=== PATIENT | male | born 1965 | race Caucasian/White ===

== ENCOUNTER 2018-04-26 09:11 | Outpatient (CLI) | payer OTHER, SELFPAY ==
[2018-04-26 08:32] LABS: Anion Gap 5.8 mmol/L (3-11); BUN 11 mg/dL (7-18); CO2 30.2 mmol/L (21.0-32.0); CREATININE 0.78 mg/dL (0.70-1.30); Calcium 8.6 mg/dL (8.5-10.1); Chloride 104 mmol/L (98-107); Cholesterol 203 mg/dL (50-200); Glucose 87 mg/dL (70-100); HDL Cholesterol 64 mg/dL (40-60); LDL CHOLESTEROL 135 mg/dL (<100); Potassium 4.1 mmol/L (3.5-5.1); Sodium 140 mmol/L (136-145); Triglyceride 50 mg/dL (30-150)
== END 2018-04-26 09:31 ==
PROVIDERS: PCP Family Medicine; Visit Provider Family Medicine
DX: Z00.00 Encounter for general adult medical examination without abnormal findings (principal); Z13.220 Encounter for screening for lipoid disorders; Z13.228 Encounter for screening for other metabolic disorders
CPT/HCPCS: 36415; 80048; 80061; 83721

== ENCOUNTER 2018-09-05 07:50 | Day surgery (SDC) | payer OTHER, SELFPAY ==
[2018-09-05 08:17] VITALS: BP 121/71; PULSE 86; RESP 16; TEMP 35.6; O2SAT 98
[2018-09-05] MEDS: Lactated Ringers 1,000 ML 75 ML IV (08:41)
--- NOTE | 2018-09-05 09:54 | BOWEL_PTH ---
PATIENT: Mayo Vaca LOC: [facility] U#:[id number] AGE/SX: 52/M ROOM: RE09/05/[address]: Shubham Chavez III : 1965 BED: DIS: 09/05/2018 SPEC #: [id number] RECD: 09/05/18 12:57 STATUS: REGAN ROBLES #: [id number] CATRINA: 09/05/18 09:[address]: Shubham Chavez III DEPT: Surgical Specimen RECD BY: Leah Riley ENTERED: 09/05/18 12:58 SP TYPE: Bowel OTHR DR: Roldan Lino MD Tissues: 1 - BIOPSY BOWEL Procedures: GROSS AND MICRO LEVEL 4 Comments: [id number]
--- NOTE | 2018-09-05 10:23 | W.PM.DSUDISC ---
Discharge Plan Disposition Patient Disposition: HOME Condition: Stable Discharge Details Reason For Visit: SCREENING Attending Provider: Shubham Chavez III Primary Care Provider: Roldan Lino Home Meds and New Rx's Prescriptions: Continued aspirin 325 mg tablet 650 mg PO DAILY RF: 0 montelukast [Singulair] 10 mg tablet 10 mg PO QPM RF: 0 ProAir HFA 8.5 GM HFA aerosol inhaler 2 puff Inhalation q 4h PRNQty: 1 RF: 1 verapamil 40 MG tablet 40 mg PO DAILY RF: 0 budesonide 8.43 ML spray,non-aerosol 1 - 4 spry NS DAILY Qty: 1 RF: 5 Flovent HFA 220 mcg/actuation HFA aerosol inhaler 2 puff Inhalation BID PRNRF: 0 Discharge Instructions Stand Alone Forms: Colonoscopy Post Instructions, Fredi Borden (DSU) Activity:: Activity as Tolerated Diet:: As Tolerated Discharge Orders Discharge Orders: Discharge Order (Routine); Ordered 09/05/18 Ordered By: Shubham Chavez III DS: Diagnosis Discharge Diagnosis (1) Colonoscopy planned: Status: Acute
--- NOTE | 2018-09-05 10:25 | W.COLOREPORT ---
Date of service: 09/05/18 Time of Service: 10:25 Colonoscopy Report Date of procedure: 09/05/18 Pre-op diagnosis general: screening colonoscopy, fistula in ano Surgeon: Shubham Chavez III Anesthesia proc note operative: MAC Pathology: other (sigmoid) Complications: None Disposition: PACU Prep: GoLYTELY Retraction Time: 6 min Findings: Sigmoid polyp sessile single diverticulum in sigmoid Procedure Description: After informed consent was obtained the patient was taken to the procedure room and placed in a left decubitous position. Monitors were applied and a time out was done. The patients name, date of , procedure, allergies to medications and metal in their body was reviewed. The patient was then sedated. Once sedated and comfortable a rectal exam was done. External exam was normal. Internal exam revealed a normal sphincter tone and no palpable masses. The prostate normal. The scope was then introduced and retrofelexed. no internal hemorrhoids were identified. The scope was then advanced to the cecum no difficulty. The TI and appendiceal orifice were identified. The prep was adequate. The scope was then slowly retracted over 6 minutes back into the rectum. Polyps were removed at sigmoid. The scope was removed and the patient was woken up and taken back to Same day surgery in stable condition. The patient tolerated the procedure well and there were no immediate complications. Follow up: The patient should follow up in 10 years unless they develop changes in bowel habits or other new gastrointestinal complaints.
[2018-09-05 10:35] VITALS: BP 120/72; PULSE 66; RESP 16; TEMP 36; O2SAT 98
== END 2018-09-05 10:55 | disposition home or self-care (01) ==
PROVIDERS: PCP Family Medicine; Visit Provider Surgery
PROC: 0DJD8ZZ Inspection of Lower Intestinal Tract, Via Natural or Artificial Opening Endoscopic (ICD-10-PCS; CPT 45378; principal; 2018-09-05 09:00)
DX: Z12.11 Encounter for screening for malignant neoplasm of colon (principal); K60.3 Anal fistula; K63.5 Polyp of colon; K57.30 Diverticulosis of large intestine without perforation or abscess without bleeding
CPT/HCPCS: 45380; 88305

== ENCOUNTER 2020-12-01 03:15 | Outpatient (CLI) | payer OTHER, SELFPAY ==
[2020-12-01 12:32] LABS: HCT 46.1 % (40.0-50.0); HGB 14.9 g/dL (13.5-17.5); MCH 30.8 pg (27.0-33.0); MCHC 32.3 % (32.0-36.0); MCV 95.4 fL (80-95); MPV 8.9 fL (8.0-11.0); Platelet Count 286 10^3/uL (130-400); RBC 4.83 10^6/uL (4.36-5.78); RDW 12.7 % (11.8-14.1); WBC 5.17 10^3/uL (4.4-10.8)
[2020-12-01 14:06] LABS: ALT 25 U/L (16-63); AST 17 U/L (15-37); Albumin 3.9 g/dL (3.4-5.0); Alkaline Phosphatase 72 U/L (46-116); Anion Gap 7.6 mmol/L (3-11); BUN 17 mg/dL (7-18); Bilirubin, Total 0.4 mg/dL (0.2-1.0); CO2 29.4 mmol/L (21.0-32.0); CREATININE 0.9 mg/dL (0.70-1.30); Calcium 8.9 mg/dL (8.5-10.1); Calculated LDL 148 mg/dL (<100); Chloride 108 mmol/L (98-107); Cholesterol 212 mg/dL (<200); Glucose 84 mg/dL (74-106); HDL Cholesterol 54 mg/dL (40-60); Potassium 4.3 mmol/L (3.5-5.1); Sodium 145 mmol/L (136-145); Total Protein 6.6 g/dL (6.4-8.2); Triglyceride 52 mg/dL (<150)
== END 2020-12-01 03:16 | disposition home or self-care (01) ==
LOC: LOS 03:16
PROVIDERS: PCP Family Medicine; Visit Provider Nurse Practitioner Family
DX: Z00.00 Encounter for general adult medical examination without abnormal findings (principal); Z13.220 Encounter for screening for lipoid disorders; Z13.228 Encounter for screening for other metabolic disorders
CPT/HCPCS: 36415; 80053; 80061; 85027

== ENCOUNTER 2022-10-26 15:03 | Outpatient (REF) | payer OTHER, SELFPAY ==
[2022-10-27 14:20] LABS: Chlamydia Result Negative (Negative); GC Result Negative (Negative)
== END 2022-10-26 15:04 | disposition home or self-care (01) ==
LOC: LBN 15:03
PROVIDERS: PCP Nurse Practitioner Family; Visit Provider Nurse Practitioner Family
DX: R30.0 Dysuria (principal)
CPT/HCPCS: 87491; 87591

== ENCOUNTER 2022-11-02 02:11 | Outpatient (CLI) | payer OTHER, SELFPAY ==
[2022-11-02 22:45] LABS: PSA, Screening 0.5 ng/mL (<=3.5)
== END 2022-11-02 02:12 | disposition home or self-care (01) ==
PROVIDERS: PCP Nurse Practitioner Family; Visit Provider Nurse Practitioner Family
DX: Z12.5 Encounter for screening for malignant neoplasm of prostate (principal)
CPT/HCPCS: 36415; 84153

== ENCOUNTER 2023-01-31 02:02 | Outpatient (CLI) | payer OTHER, SELFPAY ==
[2023-01-31 14:49] LABS: Hemoglobin A1C 5.3 % (<5.7)
[2023-01-31 14:56] LABS: CREATININE 0.9 mg/dL (0.70-1.30); Estimated GFR 99.62 (mL/min/1.73m2)
== END 2023-01-31 02:03 | disposition home or self-care (01) ==
LOC: LBO 02:02
PROVIDERS: PCP Nurse Practitioner Family; Visit Provider Nurse Practitioner Family
DX: Z13.1 Encounter for screening for diabetes mellitus (principal); Z51.81 Encounter for therapeutic drug level monitoring; Z79.1 Long term (current) use of non-steroidal anti-inflammatories (NSAID)
CPT/HCPCS: 36415; 82565; 83036

== ENCOUNTER → 2023-04-04 17:25 | Outpatient (CLI) | payer OTHER, SELFPAY ==
--- NOTE | 2023-04-04 13:37 | DI.RAD_ITS ---
Exam(s) XR CHEST 2V PA LATERAL EXAM: XR CHEST 2V PA LATERAL CLINICAL HISTORY: post-covid worsening, DYSPNEA, R06.00 TECHNIQUE: 2D digital imaging was performed of the chest. Two images were obtained. PA and lateral views were obtained. COMPARISON: CR CHEST 2 VIEWS PA,LAT from 08/21/2016 FINDINGS: MEDIASTINUM: Normal. HEART: Normal. PULMONARY VASCULATURE: Normal. LUNGS: Clear. PLEURAL SPACE: No pleural effusion or pneumothorax. BONE:Within normal limits for the patient's age. OTHER FINDINGS:Normal. IMPRESSION: No acute pulmonary findings. DATA REPOSITORY: RADIATION DOSE DELIVERED:
== END ==
PROVIDERS: PCP Nurse Practitioner Family; Visit Provider Nurse Practitioner Family
DX: R06.00 Dyspnea, unspecified (principal); U09.9 Post COVID-19 condition, unspecified
CPT/HCPCS: 71046

== ENCOUNTER → 2023-07-17 18:16 | Outpatient (CLI) | payer OTHER, SELFPAY ==
--- NOTE | 2023-07-17 09:45 | DI.MRI_ITS ---
Exam(s) MR LUMBAR SPINE WO EXAM: MR LUMBAR SPINE WO CLINICAL HISTORY: back pain, m54.41. TECHNIQUE: Multiplanar multisequence MRI of the Lumbar spine was performed. COMPARISON: None FINDINGS: Bones: The last intervertebral disc space is designated the L5/S1 level for the numbering purpose of this ex amination. The vertebral body heights are well maintained. Alignment: Unremarkable. The marrow signal characteristics are unremarkable. Cord: The conus tip ends at the T12 level. It is of normal size and signal intensity. T12-L1: No focal disc herniation is present. No central spinal canal stenosis.No neural foraminal st enosis. L1-2:Mild to moderate loss of disc height. No focal disc herniation is present. No central spinal c anal stenosis. Mild bilateral neural foraminal stenosis. L2-3: Mild disc bulging and small endplate osteophytes.. No focal disc herniation is present. No central spinal canal stenosis.No neural foraminal stenosis. L3-4: Mild disc bulging and small endplate osteophytes.Small disc protrusion left neural foramen caus ing [id number] neural foraminal narrowing. May impinge on the nerve root. No central spinal c anal stenosis. L4-5:Mild concentric disc bulging. Focal right paracentral disc herniation with superior extrusion o f disc material along the L4 vertebral body. No central spinal canal stenosis.Facet degenerative swathi nges. Moderate to severe right neural foraminal narrowing. Epfc-ii-[id number] left neural foraminal n arrowing. L5-S1: No focal disc herniation is present. No central spinal canal stenosis.No neural foraminal st enosis. The visualized SI joints and sacrum are unremarkable. Soft tissues: The paraspinal soft tissues are unremarkable. IMPRESSION: Right paracentral disc herniation with superior extrusion of disc material at L4-5. Small left foraminal disc protrusion at L3-4. DATA REPOSITORY:
== END ==
PROVIDERS: PCP Nurse Practitioner Family; Visit Provider Family Medicine
DX: M54.41 Lumbago with sciatica, right side (principal)
CPT/HCPCS: 72148

== ENCOUNTER 2024-05-20 03:35 | Outpatient (CLI) | payer OTHER, SELFPAY ==
[2024-05-20 10:54] LABS: Anion Gap 8.1 mmol/L (3-11); BUN 18 mg/dL (7-18); CO2 29.9 mmol/L (21.0-32.0); CREATININE 0.9 mg/dL (0.70-1.30); Calcium 9.3 mg/dL (8.5-10.1); Calculated LDL 133 mg/dL (<100); Chloride 105 mmol/L (98-107); Cholesterol 207 mg/dL (<200); Glucose 104 mg/dL (74-106); HDL Cholesterol 67 mg/dL (40-60); Potassium 4.8 mmol/L (3.5-5.1); Sodium 143 mmol/L (136-145); Triglyceride 38 mg/dL (<150)
[2024-05-20 18:27] LABS: PSA, Screening 0.5 ng/mL (<=3.5)
== END 2024-05-20 03:36 | disposition home or self-care (01) ==
LOC: LBO 03:35
PROVIDERS: PCP Nurse Practitioner Family; Visit Provider Nurse Practitioner Family
DX: Z13.6 Encounter for screening for cardiovascular disorders (principal); Z12.5 Encounter for screening for malignant neoplasm of prostate; Z13.1 Encounter for screening for diabetes mellitus
CPT/HCPCS: 36415; 80048; 80061; 84153

== ENCOUNTER 2024-08-23 06:14 | Day surgery (SDC) | payer OTHER, SELFPAY ==
--- NOTE | 2024-08-22 16:03 | PDOC.DSDIS_ITS ---
Date of service: 08/23/24 Discharge Plan Disposition Patient Disposition: Home Condition: Good Discharge Details Reason For Visit: screening colonoscopy Attending Provider: Rory Brewster Primary Care Provider: Bruno Christian Home Meds and New Rx's Prescriptions: Continued budesonide 0.5 mg/2 mL suspension for nebulization 2 ml IH DAILY albuterol sulfate [ProAir HFA] 90 mcg/actuation HFA aerosol inhaler 2 puff Inhalation q 4h PRN (Reason: shortness of breath or wheezing) Qty: 1 3RF aspirin 325 mg tablet 650 mg PO DAILY Patient Comments: On hold for colonoscopy 08/12/24, and is taking 81mg daily for this procedure. Per MD at [facility] fluticasone propion-salmeterol [Advair Diskus] 250-50 mcg/dose blister with device 1 inh inhalation DAILY PRN verapamil 40 mg tablet 40 mg PO DAILY Qty: 90 4RF aspirin 81 mg capsule 81 mg PO DAILY Discontinued bisacodyl [Dulcolax (bisacodyl)] 5 mg tablet,delayed release (DR/EC) 5 mg PO ONCE Qty: 4 0RF Rx Instructions: Take per colonoscopy instructions provided by ordering providers office polyethylene glycol 3350 17 gram/dose powder 17 g PO ONCE Qty: 238 0RF Rx Instructions: Take per colonoscopy instructions provided by ordering providers office Discharge Instructions Instructions: Diverticulosis Additional Instructions: Mayo, it was very nice seeing you today, and I hope you are comfortable throughout the procedure. Everything went very smoothly. Your prep was excellent and I could see everything fine. I did notice just a little bit of diverticulosis. These are little weak spots in the muscular part of the colon wall that caused the inside lining to pooch or pocket outwards a bit. They can get infected during episodes that we refer to as diverticulitis. I doubt that yours would cause any symptoms at this point. I will attach a little bit of information here about typical approaches to diverticular disease. Otherwise, the colonoscopy was negative. No polyps or anything to worry about. Based on your family history, as we talked about, I still recommend a 5-year interval for your next colonoscopy. 1. If tolerated, consume a soft, low fiber diet for 1-2 days. 2[address] Do not drive, drink alcohol, operate machinery, make critical decisions, or do activities that require coordination or balance for 24 hours. 3. Because air was put into your colon during the procedure, expelling air from your rectum (passing gas or farting) is normal. 4. You may not have a bowel movement for 1-3 days because of the colonoscopy prep. This is normal. 5. Go directly to the emergency room if you notice any of the following: Develop chills (warm to touch), or if you have a thermometer and your temperature is above 101 Difficulty breathing or difficultly swallowing Persistent vomiting Severe abdominal pain, other than gas cramps Severe chest pain Black, tarry stools Any bleeding ? exceeding one tablespoon 6. Call your physician if the site where your intravenous was started becomes red, swollen, painful, and warm to touch. 7. Your physician has reviewed your pre-procedure medications. Please continue to take those medications as previously ordered. You will be given specific information/education regarding any changes to your medications before leaving. Stand Alone Forms: Anesthesia Discharge Inst., Fredi Borden (DSU) Activity:: Activity as Tolerated Diet:: As Tolerated Discharge Orders Discharge Orders: Discharge Order (Routine); Ordered 08/22/24 Ordered By: Rory Brewster DS: Diagnosis Discharge Diagnosis (1) Encounter for screening colonoscopy: Status: Acute Asessment and Plan: Diverticulosis, otherwise negative screening colonoscopy; based on family history 5-year interval for the next screening
--- NOTE | 2024-08-22 16:04 | W.COLOREPORT ---
Date of service: 08/23/24 Time of Service: 08:15 Colonoscopy Report Date of procedure: 08/23/24 Pre-op diagnosis general: screening colonoscopy Post-op diagnosis procedure note: other (Diverticulosis) Procedure: colonoscopy Surgeon: Rory Brewster Anesthesia Type: General:No Airway Estimated blood loss (mL): 0 Pathology: none sent Complications: None Disposition: same day Indications: Mayo is a 58 year old man with a family history of colon cancer who needs a screening colonoscopy Prep: Miralax/Dulcolax Procedure Start Time: 07:40 Procedure End Time: 07:53 Retraction Time: 6 Findings: Few scattered sigmoid diverticula, otherwise negative colonoscopy Procedure Description: After the induction of anesthesia, and with the patient in left lateral decubitus position, I began by performing an external anorectal exam.? Perineum and skin were normal, as was the anal verge.? There was no evidence of external hemorrhoids.? Next, I performed a digital rectal exam.? I did not appreciate any abnormal findings.? Next, I advanced a colonoscope into the rectal vault.? I performed retroflexion.? This appeared normal using insufflation, I then advanced the colonoscope beyond the rectal folds and into the sigmoid colon before advancing towards the cecum.? The quality of the prep was excellent.? The scope was noted to be in the cecum by identification of the ileocecal valve and appendiceal orifice.? I then began withdrawing the colonoscope using repeated irrigation as necessary for full evaluation of the colonic mucosa. ?There were few diverticula scattered through the sigmoid colon. Once the scope was withdrawn to the level of the rectum, great care was taken to examine portions of the rectal folds.? Finally, the scope was withdrawn and the patient was brought to the same-day surgery recovery unit as the anesthetic wore off. ?The findings and instructions were shared with the patient prior to discharge. [place] Bowel Prep [place] Bowel Prep Right Colon: 3 Left Colon: 3 Transverse Colon: 3 Total Score: 9
[2024-08-23 06:24] VITALS: BP 122/77; PULSE 69; RESP 16; TEMP 36.3; O2SAT 98
[2024-08-23] MEDS: Lactated Ringers 1,000 ML 80 ML IV (06:44)
--- NOTE | 2024-08-23 06:59 | ANES.PREOP_ITS ---
General Info Date of Service Date Performed: 08/23/24 Height: 5 ft 8.5 in Weight: 74.8 kg Body Mass Index (BMI): 24.7 Surgical Procedure: Operation Date: 08/23/24 07:35 Proposed Procedure Side Surgeon avelina Brewster MD Meds Allergies and Home Medications Allergies Allergy/AdvReac Type Severity Reaction Status Date / Time mint Allergy Severe Anaphylaxsi Verified 08/23/24 06:20 s NSAIDS (Non-Steroidal Allergy Severe Anaphylaxsi Verified 08/23/24 06:20 Anti-Inflamma s aspirin AdvReac Intermediate aspirin Verified 08/23/24 06:20 exasperated respiratory disease Home Medication ?Medication ?Instructions ?Recorded aspirin 325 mg tablet 650 mg PO DAILY 08/15/18 albuterol sulfate 90 mcg/actuation 2 puff inhalation q 4h PRN 12/20/18 aerosol inhaler (ProAir HFA) shortness of breath or wheezing ##1 budesonide 0.5 mg/2 mL suspension 2 ml inhalation DAILY 12/20/18 for nebulization fluticasone 250 mcg-salmeterol 50 1 inh inhalation DAILY PRN 11/03/20 mcg/dose blistr powdr for inhalation (Advair Diskus) verapamil 40 mg tablet 40 mg PO DAILY #90 tabs 07/17/24 aspirin 81 mg capsule 81 mg PO DAILY 08/22/24 Current Visit Medications: Current Medications Generic Name Dose Route Start Last Admin Trade Name Freq PRN Reason Stop Dose Admin Ringer's Solution 1,000 mls @ 0 mls/hr 08/23/24 06:00 IV 08/23/24 23:59 INFUSION ALEAH Ringer's Solution 1,000 mls @ 80 mls/hr 08/23/24 06:15 08/23/24 06:44 IV 09/22/24 06:14 80 mls/hr INFUSION ALEAH Administration IV Miscellaneous Supplies 1 each 08/23/24 06:00 Iv Access IV 08/23/24 23:59 DIRECTED ALEAH Ondansetron HCl 4 mg 08/22/24 16:05 Ondansetron 4 Mg/2 Ml Vial IVP 09/21/24 16:04 Q4H PRN PRN Nausea / Vomiting Sodium Chloride 0 ml 08/23/24 06:00 Normal Saline Flush 10 Ml Syr IV 08/23/24 23:59 PRN PRN Sodium Chloride 0 ml 08/23/24 06:00 Normal Saline 10 Ml Vial IJ 08/23/24 23:59 DIRECTED PRN Sterile Water 0 ml 08/23/24 06:00 Water,Injection,Sterile 10 Ml Vial IJ 08/23/24 23:59 DIRECTED PRN PFSH Active Problems Active Problems: Problem Status Onset Code Herniated nucleus pulposus, L4-5 right Acute ~07/2023 M51.26 Back pain Acute ~07/2023 M54.9 Pilonidal cyst Acute L05.91 Spermatocele Acute N43.40 Aspirin-exacerbated respiratory disease (AERD) Acute J45.909, J33.9, Z88.6 Nasal polyps Chronic 08/04/16 J33.9 Chronic recurrent sinusitis Chronic 09/19/16 J32.9 Aspirin allergy Chronic 11/17/16 Z88.8 Medical History Medical History Normal colonoscopy (09/05/18) Dr Shubham Chavez, [facility], repeat 10 years Surgical History Surgical History (Updated 08/22/24 @ 13:40 by Prieto Talbot) History of surgery on wrist History of nasal septoplasty Nasal septoplasty (~1983) Nasal Polpectomy 09/23 [facility] 04/23 [facility] Tobacco Smoking/Tobacco Use Status: Never Passive smoking exposure: No Second hand exposure: Yes Alcohol Alcohol Intake: current Alcohol intake frequency: a few times a month Alcohol type: beer Substance Use Substance use: Never Substance use type: does not use Vital Signs and Lab Results Vital Signs Most Recent Vital Signs in EMR: Most Recent Vital Signs Temp Pulse Resp BP Pulse Ox 36.3 C L 69 16 122/77 98 08/23/24 06:24 08/23/24 06:24 08/23/24 06:24 08/23/24 06:24 08/23/24 06:24 Lab Results Blood Type / Crossmatch: No Data to Display Complete Blood Count: No Data to Display Complete Metabolic Panel: No Data to Display Liver Function Panel: No Data to Display Coagulation Panel: No Data to Display Cardiac Panel: No Data to Display Arterial Blood Gas: No Data to Display Venous Blood Gas: No Data to Display Pancreas Panel: No Data to Display Thyroid Panel: No Data to Display Infectious Disease: No Data to Display Blood Cultures: No Data to Display Toxicology Panel: No Data to Display Anesthesia Assessment and Plan Anesthesia History Personal History: No History of Anesthesia Complications Family History: No Family History of Anesthesia Complications Exercise Tolerance Exercise Tolerance: Metabolic Equivalents>4 Pertinent Negatives Pertinent Negatives: No Symptoms of GERD, No Major Cardiovascular Symptoms or Complaints, No Major Pulmonary Symptoms or Complaints and No History of CVA/TIA Cardiac & Pulmonary Exam Cardiac Exam: Normal S1/S2 Heart Sounds Pulmonary Exam: Clear Bilateral Breath Sounds Implantable Cardiac Device Does patient have a Pacemaker or an ICD?: No Airway Exam Known Difficult Airway: No Mallampati Class: 2 Mouth Opening: Normal (> 3cm) Thyromental Distance: Greater than 3 cm Neck Range of Motion: Full ROM Neck Circumference: Normal Teeth Condition: Normal Dentition ASA Classification ASA Score: ASA 2 Emergency Case?: No NPO Status NPO Status: NPO Clears >2 hours, Solids >8 hours Anesthesia Plan Resuscitation Status: Full Code Anesthesia Technique: General Anesthesia Airway Planned: Natural Airway Monitors Used: Standard Monitors
[2024-08-23 07:30] VITALS: BMI 24.7
[2024-08-23 07:56] VITALS: BP 129/74; PULSE 76; RESP 16; TEMP 36.1; O2SAT 98
--- NOTE | 2024-08-23 08:16 | W.ANESPOSTOP ---
Postoperative Evaluation Date, Time and Location Date Performed: 08/23/24 Time Performed: 08:16 Patient Location: Day Surgery Unit Vital Signs Most Recent Imported Vital Signs: Most Recent Vital Signs Temp Pulse Resp BP Pulse Ox 36.1 C L 76 16 129/74 98 08/23/24 07:56 08/23/24 07:56 08/23/24 07:56 08/23/24 07:56 08/23/24 07:56 Pain Score Most Recent Pain Score: Most Recent Pain Score Pain Level 0 08/23/24 07:56 Assessment Mental Status: Awake (Alert & Oriented to Patient Baseline) Airway and Respiratory Function: Patent airway with normal (patient baseline) respiratory exam Cardiovascular Function: Hemodynamically Stable Hydration Status: Adequately Hydrated Nausea & Vomiting: No Nausea or Vomiting Pain: Pt. Denies Any Pain Peripheral Nerve Block: Patient did not receive a nerve block
[2024-08-23 08:23] VITALS: BP 142/84; PULSE 67; RESP 16; TEMP 36.3; O2SAT 96
== END 2024-08-23 08:32 | disposition home or self-care (01) ==
LOC: SUR 06:14
PROVIDERS: PCP Nurse Practitioner Family; Visit Provider Surgery
PROC: 0DJD8ZZ Inspection of Lower Intestinal Tract, Via Natural or Artificial Opening Endoscopic (ICD-10-PCS; CPT 45378; principal; 2024-08-23 07:30)
DX: Z12.11 Encounter for screening for malignant neoplasm of colon (principal); Z80.0 Family history of malignant neoplasm of digestive organs; K57.30 Diverticulosis of large intestine without perforation or abscess without bleeding
CPT/HCPCS: 45378

== ENCOUNTER 2025-07-21 00:44 | Outpatient (CLI) | payer OTHER, SELFPAY ==
[2025-07-21 08:11] LABS: ALT 14 U/L (10-49); AST 17 U/L (<34); Albumin 4.2 g/dL (3.2-5.0); Alkaline Phosphatase 73 U/L (46-116); Anion Gap 8.9 mmol/L (3-11); BUN 15 mg/dL (9-23); Bilirubin, Total 0.9 mg/dL (0.2-1.2); CO2 27.1 mmol/L (20.0-31.0); Calcium 8.8 mg/dL (8.3-10.6); Chloride 107 mmol/L (98-107); Cholesterol 208 mg/dL (<200); Glucose 92 mg/dL (74-106); HDL Cholesterol 55 mg/dL (>40); Potassium 4.0 mmol/L (3.5-5.1); Sodium 143 mmol/L (136-145); Total Protein 6.8 g/dL (5.7-8.2)
[2025-07-21 18:29] LABS: PSA, Screening 0.7 ng/mL (<=3.5)
== END 2025-07-21 00:45 | disposition home or self-care (01) ==
LOC: LBO 00:44
PROVIDERS: PCP Nurse Practitioner Family; Visit Provider Nurse Practitioner Family
DX: Z12.5 Encounter for screening for malignant neoplasm of prostate (principal); Z00.00 Encounter for general adult medical examination without abnormal findings; J32.9 Chronic sinusitis, unspecified; Z88.8 Allergy status to other drugs, medicaments and biological substances
CPT/HCPCS: 36415; 80053; 80061; 84153